=== PATIENT | male | born 1945 | race Caucasian/White ===

== ENCOUNTER 2020-03-09 11:41 | Inpatient (IN) ==
[2020-03-09] MEDS ORDERED: Ondansetron 4 MG/2 ML VIAL IVP PRN (13:20)
[2020-03-09] MEDS ORDERED: Naloxone 0.4 MG/ML INJ IVP PRN (13:20)
[2020-03-09] MEDS: 0.9 % Sodium Chloride 1,000 ML IVC SCH ×2 (13:30→22:43)
[2020-03-09] MEDS: Piperacillin/Tazobactam 3.375 GM in 0.9 % Sodium Chloride Mini Bag 100 ML IVPB SCH (15:34)
[2020-03-09 16:08] LABS: Hepatitis B Surface Antigen Nonreactive (Nonreactive)
[2020-03-09] MEDS: *HR* Heparin 5,000 UNIT/ML VIAL SQ SCH (16:33)
[2020-03-09 16:36] LABS: Hepatitis C Virus Antibody Nonreactive (Nonreactive)
[2020-03-09 16:37] LABS: Hepatitis B Core IgM Nonreactive (Nonreactive)
[2020-03-09 16:39] LABS: Hepatitis A Antibody IgM Nonreactive (Nonreactive)
[2020-03-09] MEDS ORDERED: VISINE TEARS DROPS 15 ML 1 DROP BOTTLE BOTH EYES SCH (21:00)
[2020-03-10] MEDS: Piperacillin/Tazobactam 3.375 GM in 0.9 % Sodium Chloride Mini Bag 100 ML IVPB SCH ×3 (00:24→23:06)
[2020-03-10 03:59] LABS: Alanine Aminotransferase 418 Units/L (7-52); Albumin 3.8 g/dL (3.5-5.7); Albumin/Globulin Ratio 1.7 (1.1-2.2); Alkaline Phosphatase 111 Units/L (34-104); Aspartate Amino Transferase 202 Units/L (13-39); BUN/Creatinine Ratio 13 (6-26); Bilirubin,Total 2.2 mg/dL (0.3-1.0); Blood Urea Nitrogen 13 mg/dL (8-23); Calcium 8.4 mg/dL (8.6-10.3); Carbon Dioxide 26 mEq/L (23-29); Chloride 108 mEq/L (98-107); Cholesterol 143 mg/dL (< 200); Globulin 2.2 g/dL (2.4-3.5); Glucose 89 mg/dL (70-105); HDL Cholesterol 36 mg/dL (40-59); LDL Cholesterol,Calculated 81 mg/dL (< 100); Osmolality,Calculated 288 (280-300); Phosphorous 2.5 mg/dL (2.7-4.5); Potassium 4.1 mEq/L (3.5-5.1); Sodium 139 mEq/L (136-145); Triglycerides 129 mg/dL (< 150); eGFR For African Americans > 60 (> 60); eGFR For Non-African Americans > 60 (> 60)
[2020-03-10] MEDS: *HR* Heparin 5,000 UNIT/ML VIAL SQ SCH ×2 (05:18→17:59)
[2020-03-10] MEDS ORDERED: *HR* Rocuronium Bromide 50 MG/5 ML VIAL ONE (07:16)
[2020-03-10] MEDS ORDERED: Ondansetron 4 MG/2 ML VIAL ONE (07:16)
[2020-03-10] MEDS ORDERED: Lidocaine -MPF 2% 2 ML VIAL ONE (07:16)
[2020-03-10] MEDS ORDERED: Dexamethasone 4 MG/ML VIAL ONE (07:16)
[2020-03-10] MEDS ORDERED: Lidocaine HCL 4 ML Topical Solution (Laryng-O-Jet Kit Sterile Pak) TP ONE (07:17)
[2020-03-10] MEDS ORDERED: *HR* FentaNYL (PF) 100 MCG/2 ML VIAL ONE (07:17)
[2020-03-10] MEDS ORDERED: *HR* Propofol 200 MG/20 ML VIAL IVP ONE (07:17)
[2020-03-10] MEDS ORDERED: CefOXitin 2,000 MG VIAL ONE (09:29)
[2020-03-10] MEDS ORDERED: Isovue-300 50ML VIAL ONE (09:37)
[2020-03-10] MEDS ORDERED: *HR* HYDROMORPHONE 2 MG/ML VIAL ONE (10:19)
[2020-03-10] MEDS ORDERED: *HR* HYDROmorphone PF 0.5 MG/0.5 ML SYRINGE IVP PRN (10:41)
[2020-03-10] MEDS: *HR* HYDROmorphone PF 0.5 MG/0.5 ML SYRINGE IVP PRN ×2 (10:50→12:09)
[2020-03-10] MEDS ORDERED: *HR* HYDROmorphone 2 MG TABLET PO PRN (11:00)
[2020-03-10] MEDS ORDERED: Acetaminophen IV 1,000 MG/100 ML INFUS..BTL IVPB ONE (11:00)
[2020-03-10] MEDS ORDERED: Famotidine 20 MG/2 ML VIAL IVP ONE (11:00)
[2020-03-10] MEDS ORDERED: *HR* Labetalol 20 MG/4 ML SYRINGE IVP PRN (11:00)
[2020-03-10] MEDS ORDERED: Naloxone 0.4 MG/ML INJ IVP PRN (12:33)
[2020-03-10] MEDS ORDERED: Ondansetron 4 MG/2 ML VIAL IVP PRN (12:33)
[2020-03-10] MEDS: 0.9 % Sodium Chloride 1,000 ML IVC SCH (13:10)
[2020-03-10] MEDS: Morphine Sulfate 2 MG/ML SYRINGE IVP PRN ×2 (16:22→23:07)
[2020-03-10] MEDS: VISINE TEARS DROPS 15 ML 1 DROP BOTTLE BOTH EYES SCH (21:03)
[2020-03-10] MEDS ORDERED: GI Cocktail 40 ML EACH PO ONE (23:54)
[2020-03-11 03:43] LABS: Basophils % 0.1 %; Hematocrit 38.3 % (37.5-50.1); Lymphocytes % 13.2 %
[2020-03-11 03:44] LABS: Hemoglobin 12.2 g/dL (12.9-16.9); Immature Granulocytes % 0.4 % (0-4); Immature Platelets 6.6 % (1.1-6.1); Lymphocytes # 1.2 K/mcL (0.6-4.6); Mean Corpuscular HGB Conc 31.9 g/dL (31.6-35.5); Mean Corpuscular Volume 97.5 fL (83.0-100.0); Mean Platelet Volume 10.4 fL (9.4-12.4); Monocytes # 0.8 K/mcL (0.0-1.3); Monocytes % 8.7 %; Platelet Count 108 K/mcL (140-400); Red Blood Count 3.93 M/mcL (4.19-5.50); Segmented Neutrophils % 77.6 %; White Blood Count 9.2 K/mcL (4.3-11.1)
[2020-03-11 03:46] LABS: Neutrophils # 7.1 K/mcL (1.6-8.9)
[2020-03-11] MEDS: Piperacillin/Tazobactam 3.375 GM in 0.9 % Sodium Chloride Mini Bag 100 ML IVPB SCH ×4 (04:00→23:33)
[2020-03-11] MEDS: 0.9 % Sodium Chloride 1,000 ML IVC SCH ×4 (04:01→18:16)
[2020-03-11 04:05] LABS: Alanine Aminotransferase 321 Units/L (7-52); Albumin 4.1 g/dL (3.5-5.7); Albumin/Globulin Ratio 1.8 (1.1-2.2); Alkaline Phosphatase 109 Units/L (34-104); Aspartate Amino Transferase 98 Units/L (13-39); BUN/Creatinine Ratio 15 (6-26); Bilirubin,Total 1.6 mg/dL (0.3-1.0); Blood Urea Nitrogen 13 mg/dL (8-23); Calcium 8.9 mg/dL (8.6-10.3); Carbon Dioxide 21 mEq/L (23-29); Chloride 106 mEq/L (98-107); Globulin 2.3 g/dL (2.4-3.5); Glucose 110 mg/dL (70-105); Osmolality,Calculated 285 (280-300); Phosphorous 2.3 mg/dL (2.7-4.5); Potassium 3.8 mEq/L (3.5-5.1); Sodium 137 mEq/L (136-145); Total Protein 6.4 g/dL (6.4-8.9); eGFR For African Americans > 60 (> 60); eGFR For Non-African Americans > 60 (> 60)
[2020-03-11] MEDS: *HR* Heparin 5,000 UNIT/ML VIAL SQ SCH ×2 (05:28→17:24)
[2020-03-11] MEDS: Morphine Sulfate 2 MG/ML SYRINGE IVP PRN (05:38)
[2020-03-11] MEDS: lisinopriL 5 MG TABLET PO SCH (08:50)
[2020-03-11] MEDS: VISINE TEARS DROPS 15 ML 1 DROP BOTTLE BOTH EYES SCH (20:45)
[2020-03-12] MEDS: 0.9 % Sodium Chloride 1,000 ML IVC SCH (04:46)
[2020-03-12] MEDS: *HR* Heparin 5,000 UNIT/ML VIAL SQ SCH (05:29)
[2020-03-12 05:37] LABS: Alanine Aminotransferase 206 Units/L (7-52); Albumin 3.6 g/dL (3.5-5.7); Albumin/Globulin Ratio 1.6 (1.1-2.2); Alkaline Phosphatase 79 Units/L (34-104); Aspartate Amino Transferase 54 Units/L (13-39); BUN/Creatinine Ratio 14 (6-26); Bilirubin,Total 2.1 mg/dL (0.3-1.0); Blood Urea Nitrogen 11 mg/dL (8-23); Calcium 8.1 mg/dL (8.6-10.3); Carbon Dioxide 24 mEq/L (23-29); Chloride 106 mEq/L (98-107); Globulin 2.2 g/dL (2.4-3.5); Glucose 95 mg/dL (70-105); Magnesium 1.8 mg/dL (1.6-2.6); Osmolality,Calculated 281 (280-300); Potassium 3.6 mEq/L (3.5-5.1); Sodium 136 mEq/L (136-145); Total Protein 5.8 g/dL (6.4-8.9); eGFR For African Americans > 60 (> 60); eGFR For Non-African Americans > 60 (> 60)
[2020-03-12] MEDS: lisinopriL 5 MG TABLET PO SCH (08:44)
[2020-03-12] MEDS: Piperacillin/Tazobactam 3.375 GM in 0.9 % Sodium Chloride Mini Bag 100 ML IVPB SCH (08:44)
[2020-03-12 10:33] VITALS: BP 112/69
== END 2020-03-12 11:08 | disposition home or self-care (01) | DRG 419 ==
LOC: 3BNU → SUATTDRO 13:01
PROVIDERS: ADMIT Internal Medicine; ATTEND Internal Medicine